=== PATIENT | female | born 1960 | race Two or more races ===

== ENCOUNTER 2016-09-21 11:49 | Emergency (ER) | payer OTHER ==
[2016-09-21 13:19] VITALS: BP 118/70
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
== END 2016-09-21 15:20 | disposition home or self-care (01) ==
LOC: UCEAST 11:49 → MERGE 11:49 → UCEAST 15:20
DX: B34.9 Viral infection, unspecified (principal); H81.10 Benign paroxysmal vertigo, unspecified ear
CPT/HCPCS: 99202; G0463

== ENCOUNTER 2017-09-04 09:24 | Emergency (ER) | payer OTHER ==
--- OUTSIDE RECORDS SUMMARY | 2017-09-04 09:40 | XMS REPORT ---
:1960 External Reference #:[id number] Author Organization [facility] Address [address] [address] Phone [phone] Care Team Providers Name Role Phone Marta Ibarra MD Primary Care Physician Unavailable Payers Type Date Identification Numbers Payment Provider Subscriber Commercial Effective: Policy Number: [id number] Jose M-[facility] Jose C Beth 2011 Group Number: [id number] [id number] PayID: [id number] [place] [address] Commercial Expires: 2011 Policy Number: [employer] Rafaela Campos [id number] Group Number: [id number] [id number] PayID: [id number] [place] [address] Problems Date Description Provider Status Onset: 12/25/2010 Paroxysmal supraventricular Marta Ibarra M.D. Active tachycardia Family History Date Family Member(s) Problem(s) Comments : (age 86 Years) Father due to Heart Disease : (age 86 Years) Mother due to Stroke Children children.2 Children son.1 Children daughter.1 Siblings Siblings: 6 , 2 brothers and 4 sisters, all with high blood pressure. First Brother Diabetes Type II First Brother Hypertension Second Brother Hypertension First Sister Hypertension Second Sister Hypertension Third Sister Hypertension Third Sister Diabetes Fourth Sister Hypertension Social History Type Date Description Comments Marital Status Occupation Homemaker works one day a week at [employer] Cigarette Use Never Smoked Cigarettes ETOH Use Denies alcohol use Smoking Patient has never smoked Recreational Drug Use Denies Drug Use Daily Caffeine Drinks an occasional cup of tea. General Hx Text [place] Allergies, Adverse Reactions, Alerts Date Description Reaction Status Severity Comments 11/02/2003 NKDA active Medications Medication Date Status Form Strength Qnty SIG Indications Ordering Provider Night Splint 04/05 Active 1unit For use at M72.2 [facility] For s night Code: Cotton, Fasciitis m72.2 M.D. Wrist Brace 07/02 Active Misc 1unit for daily 727.05 [facility] s Abhinav Ibarra Calcium 600+D 03/30 Active Tablets 600-400mg 60tab 2 po daily -Unit s Abhinav Ibarra Multi For Her Active Capsules 1 by mouth Other 50+ /0000 every day Ordering Provider Lutein 20 Active Capsules once a day Unknown / Hydrocortisone 11/08 Hx Cream 2.5% 30uni apply to R21 ts affected Cotton, - area twice M.D. 08/05 Doxycycline 03/16 Hx Tablets 100mg 20tab 1 tab by J06.9 [facility] Hyclate /2015 s mouth twice Cotton, - a day for M.D. 07/26 10 Potassium 02/04 Hx Liquid 20Meq/15M 10 meq by Luther Chloride /2013 L (10%) mouth twice Luis Cooper, - daily M.D. 02/04 Potassium 02/04 Hx Tablets ER 10Meq 60tab 2 tabs by Luther Chloride ER /2013 s mouth daily Luis Cooper - M.D. 06/11 Potassium 02/03 Hx 10Meq 60uni 2 tabs po Luther Chloride ts qd Luis Cooper - M.D. 02/04 Erythromycin 11/15 Hx Ointment 5mg/GM 3.500 Apply to 782.1 gm affected Cotton, - skin bid M.D. 10/02 Ginseng Hx Capsules 250mg 2 po daily Luis Cooper - M.D. 07/02 Amoxicillin 03/30 Hx Capsules 500mg 30cap 1 tab po 461.9 s tid for 10 Cotton, - days M.D. Patanol 01/18 Hx Solution 0.1% 5ml one drop in 477.9 each eye Cotton, - twice daily M.D. 03/30 as needed Fluticasone 01/18 Hx Suspension 50mcg/Act 16gm 2 477.9 Marta intranasal Cotton, - puffs once M.D. Clarinex 01/18 Hx Tablets 5mg 30tab 1 po qd 477.9 Marta s Jm Ibarra M.D. 03/30 Metoprolol 01/05 Hx Tablets 25mg 20tab 1 po prn Luther Tartrate s SVT Jm Burrell.DVenus 10/02 Lopressor 09/22 Hx Tablets 25mgM 5tabs 1 po bid prn Jm Burrell M.DVenus 09/22 Lopressor 09/22 Hx Tablets 25mg 5tabs 1 by mouth twice daily Luis Cooper, - as needed M.D. 12/26 Aygestin 07/03 Hx Tablets 5mg 50tab as directed Jm Phipps M.D. 12/26 Vitamins 11/02 Hx Caplets 30cap 1 PO qd Jm Miller M.D. 04/26 Tenormin 11/01 Hx Tablets 90tab 1 po qd Jm Miller M.D. 11/02 Co-Enzyme Q 10 Hx Capsules 200mg mg 1 po ad Unknown /0000 Co Q10 Maximum 00 Hx Capsules 200mg every day Unknown Strength /0000 by mouth - 11/09 Collagen 00/ Hx Cream Unknown /0000 - 06/09 Immunizations CPT Code Status Date Vaccine Lot # [id number] Given 12/26/2010 Tdap - Tetanus/Diptheria/Acellular Pertussis [id number] Vital Signs Date Vital Result Comment 08/06/2017 Height 62 inches 5'2" Weight 111.00 lb Heart Rate 61 /min BP Systolic Sitting 100 mmHg BP Diastolic Sitting 56 mmHg Body Temperature 98.1 F O2 % BldC Oximetry 98 % BMI (Body Mass Index) 20.3 kg/m2 06/26/2017 Height 62 inches 5'2" Weight 112.00 lb with shoes Heart Rate 60 /min BP Systolic Sitting 118 mmHg LA reg cuff BP Diastolic Sitting 72 mmHg LA reg cuff BMI (Body Mass Index) 20.5 kg/m2 Ejection Fraction 50%-55% stress test 09/22/10 04/05/2017 Weight 112.00 lb Heart Rate 74 /min BP Systolic 104 mmHg BP Diastolic 60 mmHg Body Temperature 98.0 F O2 % BldC Oximetry 98 % 11/08/2016 Height 61.25 inches 5'1.25" Weight 111.00 lb Heart Rate 56 /min BP Systolic 122 mmHg BP Diastolic 68 mmHg Body Temperature 97.0 F O2 % BldC Oximetry 97 % BMI (Body Mass Index) 20.8 kg/m2 09/28/2016 Weight 112.00 lb with shoes Heart Rate 62 /min BP Systolic Sitting 96 mmHg BP Diastolic Sitting 60 mmHg Body Temperature 98.3 F O2 % BldC Oximetry 98 % 07/26/2016 Height 61.5 inches 5'1.50" Weight 108.00 lb Heart Rate 66 /min BP Systolic 110 mmHg BP Diastolic 70 mmHg Body Temperature 97.2 F O2 % BldC Oximetry 98 % BMI (Body Mass Index) 20.1 kg/m2 03/16/2016 Weight 109.75 lb Heart Rate 76 /min BP Systolic Sitting 115 mmHg BP Diastolic Sitting 79 mmHg Body Temperature 98.1 F O2 % BldC Oximetry 98 % 10/04/2015 Height 62 inches 5'2" Weight 106.25 lb Heart Rate 100 /min BP Systolic Sitting 130 mmHg LA, regular cuff BP Diastolic Sitting 86 mmHg LA, regular cuff BMI (Body Mass Index) 19.4 kg/m2 Ejection Fraction 60% echo 07/27/10 07/05/2015 Height 61.75 inches 5'1.75" Weight 104.75 lb Heart Rate 65 /min BP Systolic Sitting 90 mmHg BP Diastolic Sitting 57 mmHg Body Temperature 97.5 F O2 % BldC Oximetry 99 % BMI (Body Mass Index) 19.3 kg/m2 11/09/2014 Height 62 inches 5'2" Weight 101.00 lb Heart Rate 63 /min BP Systolic 94 mmHg BP Diastolic 54 mmHg Body Temperature 98.6 F BMI (Body Mass Index) 18.5 kg/m2 07/16/2014 Weight 106.50 lb Heart Rate 69 /min BP Systolic Sitting 108 mmHg BP Diastolic Sitting 70 mmHg Body Temperature 97.1 F O2 % BldC Oximetry 98 % 07/02/2014 Weight 106.50 lb Heart Rate 64 /min BP Systolic Sitting 106 mmHg BP Diastolic Sitting 62 mmHg Body Temperature 96.4 F 06/11/2014 Height 61.5 inches 5'1.50" Weight 104.00 lb Heart Rate 68 /min BP Systolic Sitting 100 mmHg BP Diastolic Sitting 66 mmHg BMI (Body Mass Index) 19.3 kg/m2 12/18/2013 Height 61.5 inches 5'1.50" Weight 112.00 lb Heart Rate 64 /min BP Systolic Sitting 104 mmHg BP Diastolic Sitting 62 mmHg BMI (Body Mass Index) 20.8 kg/m2 10/09/2012 Height 61.5 inches 5'1.50" Weight 105.00 lb Heart Rate 66 /min BP Systolic Sitting 94 mmHg BP Diastolic Sitting 62 mmHg BMI (Body Mass Index) 19.5 kg/m2 10/02/2012 Height 61.5 inches 5'1.50" Weight 104.00 lb Heart Rate 67 /min BP Systolic 100 mmHg BP Diastolic 70 mmHg Respiratory Rate 14 /min BMI (Body Mass Index) 19.3 kg/m2 11/16/2011 Height 61.5 inches 5'1.50" Weight 107.00 lb Heart Rate 66 /min BP Systolic Sitting 102 mmHg BP Diastolic Sitting 60 mmHg BMI (Body Mass Index) 19.9 kg/m2 11/07/2011 Height 61.5 inches 5'1.50" Weight 107.00 lb Heart Rate 60 /min BP Systolic 114 mmHg BP Diastolic 62 mmHg BMI (Body Mass Index) 19.9 kg/m2 03/30/2011 Height 61.5 inches 5'1.50" Weight 114.00 lb Heart Rate 64 /min BP Systolic Sitting 96 mmHg BP Diastolic Sitting 64 mmHg Body Temperature 98.1 F BMI (Body Mass Index) 21.2 kg/m2 01/18/2011 Height 61.5 inches 5'1.50" Weight 121.00 lb Heart Rate 70 /min BP Systolic Sitting 102 mmHg BP Diastolic Sitting 70 mmHg Body Temperature 97.9 F BMI (Body Mass Index) 22.5 kg/m2 01/05/2011 Height 61.5 inches 5'1.50" Weight 118.00 lb Heart Rate 59 /min BP Systolic Sitting 130 mmHg L BP Diastolic Sitting 80 mmHg L BMI (Body Mass Index) 21.9 kg/m2 12/26/2010 Height 61.5 inches 5'1.50" Weight 121.00 lb Heart Rate 78 /min BP Systolic 100 mmHg BP Diastolic 70 mmHg BMI (Body Mass Index) 22.5 kg/m2 07/13/2010 Weight 114.75 lb Heart Rate 76 /min BP Systolic 102 mmHg BP Diastolic 60 mmHg 07/03/2010 Weight 117.00 lb Heart Rate 62 /min BP Systolic 100 mmHg BP Diastolic 60 mmHg 04/26/2010 Weight 113.00 lb Heart Rate 60 /min BP Systolic Sitting 96 mmHg rt BP Diastolic Sitting 60 mmHg rt BP Systolic Standing 114 mmHg BP Diastolic Standing 64 mmHg 11/02/2003 Height 62 inches Weight 117.00 lb Heart Rate 56 /min BP Systolic Sitting 100 mmHg BP Diastolic Sitting 60 mmHg BP Systolic Standing 102 mmHg BP Diastolic Standing 64 mmHg BMI (Body Mass Index) 21.4 kg/m2 Results Test Date Test Result H/L Range Note CBC Auto Diff 07/18/2017 White Blood Count 4.6 10^3/uL 3.5-10.8 Red Blood Count 4.23 10^6/uL 4.0-5.4 Hemoglobin 12.7 g/dL 12.0-16.0 Hematocrit 38 % 35-47 Mean Corpuscular Volume 90 fL 80-97 Mean Corpuscular Hemoglobin 30 pg 27-31 Mean Corpuscular HGB Conc 33 g/dL 31-36 Red Cell Distribution Width 13 % 10.5-15 Platelet Count 290 10^3/uL 150-450 Mean Platelet Volume 9 um3 7.4-10.4 Abs Neutrophils 2.8 10^3/uL 1.5-7.7 Abs Lymphocytes 1.2 10^3/uL 1.0-4.8 Abs Monocytes 0.4 10^3/uL 0-0.8 Abs Eosinophils 0.1 10^3/uL 0-0.6 Abs Basophils 0 10^3/uL 0-0.2 Abs Nucleated RBC 0 10^3/uL Granulocyte % 61.5 % 38-83 Lymphocyte % 25.5 % 25-47 Monocyte % 9.6 % High 1-9 Eosinophil % 2.6 % 0-6 Basophil % 0.8 % 0-2 Nucleated Red Blood Cells % 0 Laboratory test finding 07/18/2017 TSH (Thyroid Stim Horm) 4.43 mcIU/mL 0.34-5.60 1 Comp Metabolic Panel 07/18/2017 Sodium 138 mmol/L 133-145 Potassium 4.1 mmol/L 3.5-5.0 Chloride 103 mmol/L 101-111 Co2 Carbon Dioxide 31 mmol/L 22-32 Anion Gap 4 mmol/L 2-11 Glucose 93 mg/dL 70-100 Blood Urea Nitrogen 16 mg/dL 6-24 Creatinine 0.61 mg/dL 0.51-0.95 BUN/Creatinine Ratio 26.2 High 8-20 Calcium 9.5 mg/dL 8.6-10.3 Total Protein 7.2 g/dL 6.4-8.9 Albumin 4.1 g/dL 3.2-5.2 Globulin 3.1 g/dL 2-4 Albumin/Globulin Ratio 1.3 1-3 Total Bilirubin 0.90 mg/dL 0.2-1.0 Alkaline Phosphatase 62 U/L 34-104 Alt 13 U/L 7-52 Ast 18 U/L 13-39 Egfr Non- 101.5 >60 Egfr 130.5 >60 2 Laboratory test finding 07/18/2017 Magnesium 2.2 mg/dL 1.9-2.7 3 Lipid Profile (Trig/Chol/HDL) 07/18/2017 Triglycerides 115 mg/dL 4 Cholesterol 241 mg/dL 5 HDL Cholesterol 65.1 mg/dL 6 LDL Cholesterol 153 mg/dL 7 CBC Auto Diff 07/25/2016 White Blood Count 5.3 10^3/uL 3.5-10.8 8 Red Blood Count 4.25 10^6/uL 4.0-5.4 8 Hemoglobin 12.5 g/dL 12.0-16.0 8 Hematocrit 38 % 35-47 8 Mean Corpuscular Volume 90 fL 80-97 8 Mean Corpuscular Hemoglobin 29 pg 27-31 8 Mean Corpuscular HGB Conc 33 g/dL 31-36 8 Red Cell Distribution Width 13 % 10.5-15 8 Platelet Count 284 10^3/uL 150-450 8 Mean Platelet Volume 9 um3 7.4-10.4 8 Abs Neutrophils 3.6 10^3/uL 1.5-7.7 8 Abs Lymphocytes 1.2 10^3/uL 1.0-4.8 8 Abs Monocytes 0.3 10^3/uL 0-0.8 8 Abs Eosinophils 0.1 10^3/uL 0-0.6 8 Abs Basophils 0 10^3/uL 0-0.2 8 Abs Nucleated RBC 0 10^3/uL 8 Granulocyte % 68.0 % 38-83 8 Lymphocyte % 22.5 % Low 25-47 8 Monocyte % 5.8 % 1-9 8 Eosinophil % 2.8 % 0-6 8 Basophil % 0.9 % 0-2 8 Nucleated Red Blood Cells % 0 8 Laboratory test finding 07/25/2016 Magnesium 2.0 mg/dL 1.9-2.7 8, 9 Comp Metabolic Panel 07/25/2016 Sodium 139 mmol/L 133-145 8 Potassium 4.1 mmol/L 3.5-5.0 8 Chloride 104 mmol/L 101-111 8 Co2 Carbon Dioxide 29 mmol/L 22-32 8 Anion Gap 6 mmol/L 2-11 8 Glucose 89 mg/dL 70-100 8 Blood Urea Nitrogen 12 mg/dL 6-24 8 Creatinine 0.57 mg/dL 0.51-0.95 8 BUN/Creatinine Ratio 21.1 High 8-20 8 Calcium 9.3 mg/dL 8.6-10.3 8 Total Protein 6.9 g/dL 6.4-8.9 8 Albumin 4.0 g/dL 3.2-5.2 8 Globulin 2.9 g/dL 2-4 8 Albumin/Globulin Ratio 1.4 1-3 8 Total Bilirubin 0.70 mg/dL 0.2-1.0 8 Alkaline Phosphatase 57 U/L 34-104 8 Alt 18 U/L 7-52 8 Ast 23 U/L 13-39 8 Egfr Non- 110.1 >60 8 Egfr 141.6 >60 8, 10 Lipid Profile (Trig/Chol/HDL) 07/25/2016 Triglycerides 134 mg/dL 8, 11 Cholesterol 221 mg/dL 8, 12 HDL Cholesterol 59.7 mg/dL 8, 13 LDL Cholesterol 135 mg/dL 8, 14 Comp Metabolic Panel 10/04/2015 Sodium 135 mmol/L 133-145 Potassium 4.4 mmol/L 3.5-5.0 Chloride 99 mmol/L Low 101-111 Co2 Carbon Dioxide 28 mmol/L 22-32 Anion Gap 8 mmol/L 2-11 Glucose 119 mg/dL High 70-100 Blood Urea Nitrogen 13 mg/dL 6-24 Creatinine 0.66 mg/dL 0.51-0.95 BUN/Creatinine Ratio 19.7 8-20 Calcium 9.6 mg/dL 8.6-10.3 Total Protein 7.8 g/dL 6.4-8.9 Albumin 4.7 g/dL 3.2-5.2 Globulin 3.1 g/dL 2-4 Albumin/Globulin Ratio 1.5 1-3 Total Bilirubin 1.00 mg/dL 0.2-1.0 Alkaline Phosphatase 75 U/L 34-104 Alt 15 U/L 7-52 Ast 24 U/L 13-39 Egfr Non- 93.0 >60 Egfr 119.6 >60 15 Laboratory test finding 10/04/2015 Magnesium 2.2 mg/dL 1.9-2.7 CBC Auto Diff 10/04/2015 White Blood Count 4.3 10^3/uL 3.5-10.8 Red Blood Count 4.62 10^6/uL 4.0-5.4 Hemoglobin 14.0 g/dL 12.0-16.0 Hematocrit 43 % 35-47 Mean Corpuscular Volume 93 fL 80-97 Mean Corpuscular Hemoglobin 30 pg 27-31 Mean Corpuscular HGB Conc 33 g/dL 31-36 Red Cell Distribution Width 13 % 10.5-15 Platelet Count 341 10^3/uL 150-450 Mean Platelet Volume 8 um3 7.4-10.4 Abs Neutrophils 3.1 10^3/uL 1.5-7.7 Abs Lymphocytes 0.8 10^3/uL Low 1.0-4.8 Abs Monocytes 0.4 10^3/uL 0-0.8 Abs Eosinophils 0 10^3/uL 0-0.6 Abs Basophils 0 10^3/uL 0-0.2 Abs Nucleated RBC 0 10^3/uL Granulocyte % 71.8 % 38-83 Lymphocyte % 17.8 % Low 25-47 Monocyte % 8.8 % 1-9 Eosinophil % 1.0 % 0-6 Basophil % 0.6 % 0-2 Nucleated Red Blood Cells % 0.1 CBC No Diff 06/21/2015 White Blood Count 3.7 10^3/uL Low 4.8-10.8 Red Blood Count 4.53 10^6/uL 4.0-5.4 Hemoglobin 13.5 g/dL 12.0-16.0 Hematocrit 42 % 35-47 Mean Corpuscular Volume 94 fL 80-97 Mean Corpuscular Hemoglobin 30 pg 27-31 Mean Corpuscular HGB Conc 32 g/dL 31-36 Red Cell Distribution Width 13 % 10.5-15 Platelet Count 302 10^3/uL 150-450 Mean Platelet Volume 9 um3 7.4-10.4 Basic Metabolic Panel 06/21/2015 Sodium 138 mmol/L 133-145 Potassium 4.1 mmol/L 3.5-5.0 Chloride 101 mmol/L 101-111 Co2 Carbon Dioxide 31 mmol/L 22-32 Anion Gap 6 mmol/L 2-11 Glucose 91 mg/dL 70-100 Blood Urea Nitrogen 14 mg/dL 6-24 Creatinine 0.63 mg/dL 0.51-0.95 BUN/Creatinine Ratio 22.2 High 8-20 Calcium 9.6 mg/dL 8.6-10.3 Egfr Non- 98.5 >60 Egfr 126.6 >60 16 Lipid Profile (Trig/Chol/HDL) 06/21/2015 Triglycerides 82 mg/dL 17 Cholesterol 238 mg/dL 18 HDL Cholesterol 76.9 mg/dL 19 LDL Cholesterol 145 mg/dL 20 Laboratory test finding 07/02/2014 Hepatitis C Antibody Nonreactive Nonreactive Hepatitis B Ally AB 07/02/2014 Hepatitis B Surface AB Reactive Nonreactive Titer Hep B Surf AB Level 596.60 mIU/mL <12 21 Laboratory test 07/02/2014 Hepatitis B Surface Nonreactive Nonreactive finding Antigen HPV High Risk 07/02/2014 Human Papillomavirus See Comment 22 Source HPV High Risk Type 16, PCR Negative Negative HPV High Risk Type 18, PCR Negative Negative HPV Other Risk types Negative Negative 23 Laboratory test finding 07/02/2014 Cytology RUN DATE: 07/02/ <SEE 24 NOTE> Basic Metabolic Panel 06/10/2014 Sodium 139 mmol/L 133-145 Potassium 4.0 mmol/L 3.7-5.6 Chloride 103 mmol/L 101-111 Co2 Carbon Dioxide 32 mmol/L 22-32 Anion Gap 4 mmol/L 2-11 Glucose 90 mg/dL 70-100 Blood Urea Nitrogen 19 mg/dL 6-24 Creatinine 0.58 mg/dL 0.51-0.95 BUN/Creatinine Ratio 32.8 High 8-20 Calcium 9.7 mg/dL 8.6-10.3 Egfr Non- 108.7 >60 Egfr 139.9 >60 25 CBC Auto Diff 01/16/2014 White Blood Count 4.4 10^3/uL Low 4.8-10.8 26 Red Blood Count 3.98 10^6/uL Low 4.0-5.4 26 Hemoglobin 12.4 g/dL 12.0-16.0 26 Hematocrit 36 % 35-47 26 Mean Corpuscular Volume 91 fL 80-97 26 Mean Corpuscular Hemoglobin 31 pg 27-31 26 Mean Corpuscular HGB Conc 34 g/dL 31-36 26 Red Cell Distribution Width 13 % 10.5-15 26 Platelet Count 268 10^3/uL 150-450 26 Mean Platelet Volume 8 um3 7.4-10.4 26 Abs Neutrophils 2.9 10^3/uL 1.5-7.7 26 Abs Lymphocytes 1.0 10^3/uL 1.0-4.8 26 Abs Monocytes 0.4 10^3/uL 0-0.8 26 Abs Eosinophils 0.1 10^3/uL 0-0.6 26 Abs Basophils 0 10^3/uL 0-0.2 26 Abs Nucleated RBC 0 10^3/uL 26 Granulocyte % 64.9 % 38-83 26 Lymphocyte % 22.8 % Low 25-47 26 Monocyte % 8.2 % 1-9 26 Eosinophil % 3.2 % 0-6 26 Basophil % 0.9 % 0-2 26 Nucleated Red Blood Cells % 0 26 Comp Metabolic Panel 01/16/2014 Sodium 139 mmol/L 133-145 26 Potassium 4.4 mmol/L 3.7-5.6 26 Chloride 106 mmol/L 101-111 26 Co2 Carbon Dioxide 29 mmol/L 22-32 26 Anion Gap 4 mmol/L 2-11 26 Glucose 92 mg/dL 70-100 26 Blood Urea Nitrogen 15 mg/dL 6-24 26 Creatinine 0.66 mg/dL 0.51-0.95 26 BUN/Creatinine Ratio 22.7 High 8-20 26 Calcium 9.0 mg/dL 8.6-10.3 26 Total Protein 6.9 g/dL 6.4-8.9 26 Albumin 4.0 g/dL 3.2-5.2 26 Globulin 2.9 g/dL 2-4 26 Albumin/Globulin Ratio 1.4 1-3 26 Total Bilirubin 0.40 mg/dL 0.2-1.0 26 Alkaline Phosphatase 66 U/L 34-104 26 Alt 17 U/L 7-52 26 Ast 21 U/L 13-39 26 Egfr Non- 93.7 >60 26 Egfr 120.5 >60 26, 27 Lipid Panel - [facility] 01/16/2014 Creatine Kinase 87 U/L 10-223 26, 28 Lipid Profile (Trig/Chol/HDL) 01/16/2014 Triglycerides 175 mg/dL 26, 29 Cholesterol 195 mg/dL 26, 30 HDL Cholesterol 55.6 mg/dL 26, 31 LDL Cholesterol 104 mg/dL 26, 32 Basic Metabolic Panel 02/05/2013 Sodium 138 mmol/L 133-145 Potassium 4.1 mmol/L 3.5-5.0 Chloride 103 mmol/L 101-111 Co2 Carbon Dioxide 28.0 mmol/L 22-32 Anion Gap 7.0 mmol/L 2-11 Glucose 105 mg/dL High 70-100 Blood Urea Nitrogen 20 mg/dL 6-24 Creatinine 0.60 mg/dL 0.50-1.40 BUN/Creatinine Ratio 33.3 High 8-20 Calcium 9.5 mg/dL 8.1-9.9 Egfr Non- 105.0 >60 Egfr 135.0 >60 33 CKMB 10/02/2012 CKMB ng/mL 2.5 ng/mL 0.3-4.0 34 Basic Metabolic Panel 10/02/2012 Sodium 138 mmol/L 133-145 Potassium 3.9 mmol/L 3.5-5.0 Chloride 106 mmol/L 101-111 Co2 Carbon Dioxide 29.0 mmol/L 22-32 Anion Gap 3.0 mmol/L 2-11 Glucose 96 mg/dL 70-100 Blood Urea Nitrogen 18 mg/dL 6-24 Creatinine 0.60 mg/dL 0.50-1.40 BUN/Creatinine Ratio 30.0 High 8-20 Calcium 9.4 mg/dL 8.1-9.9 Egfr Non- 105.0 >60 Egfr 135.0 >60 35 Laboratory test finding 10/02/2012 Troponin I 0 ng/mL 0-0.06 36 Laboratory test finding 10/02/2012 Creatine Kinase 151 U/L 0-200 Lipid Profile (Trig/Chol/HDL) 08/25/2012 Triglycerides 56 mg/dL 40-200 Cholesterol 239 mg/dL High Less than 200 HDL Cholesterol 89 mg/dL High 40-60 37 Cholesterol/HDL Ratio 2.7 Average 1-4.44 LDL Cholesterol 138.8 mg/dL High Less Than 100 38 Basic Metabolic Panel 08/25/2012 Sodium 138 mmol/L 133-145 Potassium 4.3 mmol/L 3.5-5.0 Chloride 101 mmol/L 101-111 Co2 Carbon Dioxide 31.0 mmol/L 22-32 Anion Gap 6.0 mmol/L 2-11 Glucose 89 mg/dL 70-100 Blood Urea Nitrogen 13 mg/dL 6-24 Creatinine 0.70 mg/dL 0.50-1.40 BUN/Creatinine Ratio 18.6 8-20 Calcium 9.8 mg/dL 8.1-9.9 Egfr Non- 88.2 >60 Egfr 113.5 >60 39 Laboratory test finding 12/27/2010 Ferritin < 10 NG/ML Low 11.0-307 Iron & Iron Binding Capacity 12/27/2010 Iron Total 62 g/dL 28-170 Unsaturated Iron Binding 376 g/dL Total Iron Binding Capacity 438 g/dL 250-450 % Iron Saturation 14 % Low 15-55 Lipid Profile (Trig/Chol/HDL) 12/27/2010 Triglyceride 117 mg/dL 40-200 Cholesterol 235 mg/dL High Less Than 200 40 High Density Lipoprotein 63 mg/dL High 40-60 41 Cholesterol/HDL Ratio 3.73 AVERAGE 1-4.44 Low Density Lipoprotein 149 mg/dL High Less Than 100 42 Comp Metabolic Panel 12/27/2010 Sodium 139 mmol/L 135-145 Potassium 4.5 mmol/L 3.5-5.0 Chloride 106 mmol/L 101-111 Co2 (Carbon Dioxide) 29.0 mmol/L 22-32 Anion Gap 4.0 mmol/L 2-11 43 Glucose 95 mg/dL 70-100 BUN 16 mg/dL 6-24 Creatinine 0.50 mg/dL 0.50-1.40 One Over Creatinine 2.00 BUN/Creatinine Ratio 32.0 High 8-20 Calcium 8.9 mg/dL 8.1-9.9 Total Protein 7.1 GM/DL 6.2-8.1 Albumin 3.7 GM/DL 3.6-5.4 Globulin 3.4 GM/DL 2-4 Albumin/Globulin Ratio 1.1 1-3 Bilirubin Total 0.8 mg/dL 0.4-1.5 44 Alkaline Phosphatase 52 U/L 30-110 Alt (SGPT) 18 U/L 14-54 Ast (Sgot) 22 U/L 12-42 eGFR Non- 130.6 > 60 eGFR 168.0 > 60 45 CBC Auto Diff 12/27/2010 White Blood Count 4.3 CUMM Low 4.8-10.8 Red Cell Count 3.91 CUMM Low 4.2-5.4 Hemoglobin 12.1 g/dL 12.0-16.0 Hematocrit 36 % 35-47 Mean Corpuscular Volume 91 um3 79-97 Mean Corpuscular Hemoglob 31 pg 27-31 Mean Corpuscular HGB Cone 34 g/dL 32-36 Redcell Distribution WDTH 12 % 10.5-15 Platelet Count 317 CUMM 150-450 Mean Platelet Volume 8.5 um3 7.4-10.4 Gran % 66.7 % 38-83 Lymph % 22.1 % Low 25-47 Mononuclear % 8.4 % 1-9 Eosinophil % 2.3 % 0-6 Basophil % 0.5 % 0-2 Abs Lymphs 1.0 1.0-4.8 Abs Mononuclear 0.4 0-0.8 Absolute Neutrophil Count 2.9 1.5-7.7 Abs Eosinophils 0.1 0-0.6 Abs Basophils 0 0-0.2 Cytology 12/26/2010 Cytology <SEE 46 NOTE> CBC With Electronic 09/22/2010 White Blood Count 4.9 CUMM 4.8-10.8 Diff Red Cell Count 4.11 CUMM Low 4.2-5.4 Hemoglobin 12.8 g/dL 12.0-16.0 Hematocrit 37 % 35-47 Mean Corpuscular Volume 89 um3 79-97 Mean Corpuscular Hemoglob 31 pg 27-31 Mean Corpuscular HGB Cone 35 g/dL 32-36 Redcell Distribution WDTH 13 % 10.5-15 Platelet Count 328 CUMM 150-450 Mean Platelet Volume 7.6 um3 7.4-10.4 Gran % 69.9 % 38-83 Lymph % 20.2 % Low 25-47 Mononuclear % 8.2 % 1-9 Eosinophil % 1.2 % 0-6 Basophil % 0.5 % 0-2 Abs Lymphs 1.0 1.0-4.8 Abs Mononuclear 0.4 0-0.8 Absolute Neutrophil Count 3.5 1.5-7.7 Abs Eosinophils 0.1 0-0.6 Abs Basophils 0 0-0.2 Laboratory test finding 09/22/2010 Magnesium 2.1 mg/dL 1.7-2.6 TSH 2.65 MIU/ML 0.34-5.60 Basic Metabolic Panel 09/22/2010 Sodium 136 mmol/L 135-145 Potassium 4.1 mmol/L 3.5-5.0 Chloride 102 mmol/L 101-111 Co2 (Carbon Dioxide) 27.0 mmol/L 22-32 Anion Gap 7.0 mmol/L 2-11 47 Glucose 85 mg/dL 70-100 BUN 16 mg/dL 6-24 Creatinine 0.50 mg/dL 0.50-1.40 One Over Creatinine 2.00 BUN/Creatinine Ratio 32.0 High 8-20 Calcium 8.9 mg/dL 8.1-9.9 eGFR Non- 138.8 > 60 eGFR 168.0 > 60 48 Laboratory test finding 06/29/2010 Magnesium 2.2 mg/dL 1.7-2.6 Basic Metabolic Panel 06/29/2010 Sodium 132 mmol/L Low 135-145 Potassium 4.1 mmol/L 3.5-5.0 Chloride 99 mmol/L Low 101-111 Co2 (Carbon Dioxide) 29.0 mmol/L 22-32 Anion Gap 4.0 mmol/L 2-11 49 Glucose 95 mg/dL 70-100 50 BUN 13 mg/dL 6-24 Creatinine 0.50 mg/dL 0.50-1.40 One Over Creatinine 2.00 BUN/Creatinine Ratio 26.0 High 8-20 Calcium 9.3 mg/dL 8.1-9.9 eGFR Non- 139.4 > 60 eGFR 168.6 > 60 51 1 Copy Result to: MARTA IBARRA ([id number]) 2 Because ethnic data is not always readily available, this report includes an eGFR for both -Americans and non- Americans. The National Kidney Disease Education Program (NKDEP) does not endorse the use of the MDRD equation for patients that are not between the ages of 18 and 70, are , have extremes of body size, muscle mass, or nutritional status, or are non- or non-. According to the National Kidney Foundation, irrespective of diagnosis, the stage of the disease is based on the level of kidney function: Stage Description GFR(mL/min/1.73 m(2)) 1 Kidney damage with normal or decreased GFR 90 2 Kidney damage with mild decrease in GFR 60-89 3 Moderate decrease in GFR 30-59 4 Severe decrease in GFR 15-29 5 Kidney failure <15 (or dialysis) 3 Copy Result to: MARTA IBARRA ([id number]) 4 Desirable: <150 Borderline High: 150-199 High: 200-499 Very High: >500 5 Desirable: <200 Borderline High: 200-239 High: >239 6 Low: <40 Desirable: 40-60 High: >60 7 Desirable: <100 Near Optimal: 100-129 Borderline High: 130-159 High: 160-189 Very High: >189 8 PT IS FASTING 9 PT IS FASTING 10 Because ethnic data is not always readily available, this report includes an eGFR for both -Americans and non- Americans. The National Kid[employer] Education Program (NKDEP) does not endorse the use of the MDRD equation for patients that are not between the ages of 18 and 70, are , have extremes of body size, muscle mass, or nutritional status, or are non- or non-. According to the [employer], irrespective of diagnosis, the stage of the disease is based on the level of kidney function: Stage Description GFR(mL/min/1.73 m(2)) 1 Kidney damage with normal or decreased GFR 90 2 Kidney damage with mild decrease in GFR 60-89 3 Moderate decrease in GFR 30-59 4 Severe decrease in GFR 15-29 5 Kidney failure <15 (or dialysis) 11 Desirable <150 Borderline high 150-199 High 200-499 Very High >500 12 Desirable <200 Borderline high 200-239 High >239 13 Low <40 Desirable: 40-60 High: >60 14 Desirable: <100 mg/dL Near Optimal: 100-129 mg/dL Borderline High: 130-159 mg/dL High: 160-189 mg/dL Very High: >189 mg/dL 15 Because ethnic data is not always readily available, this report includes an eGFR for both -Americans and non- Americans. The National Kidney Disease Education Program (NKDEP) does not endorse the use of the MDRD equation for patients that are not between the ages of 18 and 70, are , have extremes of body size, muscle mass, or nutritional status, or are non- or non-. According to the National Kidney Foundation, irrespective of diagnosis, the stage of the disease is based on the level of kidney function: Stage Description GFR(mL/min/1.73 m(2)) 1 Kidney damage with normal or decreased GFR 90 2 Kidney damage with mild decrease in GFR 60-89 3 Moderate decrease in GFR 30-59 4 Severe decrease in GFR 15-29 5 Kidney failure <15 (or dialysis) 16 Because ethnic data is not always readily available, this report includes an eGFR for both -Americans and non- Americans. The National Kidney Disease Education Program (NKDEP) does not endorse the use of the MDRD equation for patients that are not between the ages of 18 and 70, are , have extremes of body size, muscle mass, or nutritional status, or are non- or non-. According to the National Kidney Foundation, irrespective of diagnosis, the stage of the disease is based on the level of kidney function: Stage Description GFR(mL/min/1.73 m(2)) 1 Kidney damage with normal or decreased GFR 90 2 Kidney damage with mild decrease in GFR 60-89 3 Moderate decrease in GFR 30-59 4 Severe decrease in GFR 15-29 5 Kidney failure <15 (or dialysis) 17 Desirable <150 Borderline high 150-199 High 200-499 Very High >500 18 Desirable <200 Borderline high 200-239 High >239 19 Low <40 Desirable: 40-60 High: >60 20 Desirable: <100 mg/dL Near Optimal: 100-129 mg/dL Borderline High: 130-159 mg/dL High: 160-189 mg/dL Very High: >189 mg/dL 21 This assay does not differentiate between reactivity due to a vaccine-induced immune response or an immune response induced by infection with HBV. 22 RESULT: Ectocervical/Endocervical 23 The following Other High Risk HPV types were not detected: 31, 33, 35, 39, 45, 51, 52, 56, 58, 59, 66, and 68 Test Performed by: [address] [address] [employer]: Willy Bales M.D. 24 RUN DATE: 07/02/14 [facility] LAB LIVE PAGE 1 RUN TIME: [address] [place] [id number] Specimen Inquiry Name: RAFAELA CAMPOS : [address]: Marta Ibarra MD Acct: [id number] Unit: [id number] AGE: 53 Location: [facility] Re07/02/14 SEX: F Status: REG REF SPEC: [id number] REEMA: 07/02/[address]: Marta Ibarra MD REQ: [id number] RECD: 07/02/14 STATUS: SOUT _ ORDERED: IMAGE ANALYSIS, HPV/Thin Prep FINAL DIAGNOSIS Negative for Intraepithelial lesion or Malignancy COMMENTS: Specimen sent to [facility] in [place], [place] on 07/02/14 by [id number] at 1459. Results will be reported separately. A. Ectocervical/Endocervical Specimen Adequacy: Satisfactory of evaluation Transformation zone component cannot be definitely identified due to presence of atrophy or other hormonal changes Patient Information: HPV: High risk HPV DNA testing regardless of pap results. Actual Specimen Date: 07/02/14 LMP If Unknown: unknown ?: N Post Menopausal?: Y Hysterectomy?: N Previous Abnormal Pap Smears?:N Signed (signature on file) MarnieGOLDY Worley (ASCP) 07/02/14 1510 This Pap test was evaluated with the assistance of the [employer] Test Imaging System. Due to cytologic findings at the [facility] former arbor end microscope, comprehensive manual rescreening by a Soccer Coach may be required. The Pap Smear is a screening test designed to aid in the detection of premalignant and malignant conditions of the uterine cervix. It is not a diagnostic procedure and should not be used as the sole means of detecting cervical cancer. Both false- positive and false- negative reports do occur. Depending on your risk status, a Pap smear shoudl be obtained and evaluated every 1-3 years. END OF REPORT * ML=Testing performed at Main Lab DEPARTMENT OF PATHOLOGY, [address] [place] [address] Alexei Styles M.D. Director [facility] # [id number] 25 Because ethnic data is not always readily available, this report includes an eGFR for both -Americans and non- Americans. The National Kidney Disease Education Program (NKDEP) does not endorse the use of the MDRD equation for patients that are not between the ages of 18 and 70, are , have extremes of body size, muscle mass, or nutritional status, or are non- or non-. According to the National Kidney Foundation, irrespective of diagnosis, the stage of the disease is based on the level of kidney function: Stage Description GFR(mL/min/1.73 m(2)) 1 Kidney damage with normal or decreased GFR 90 2 Kidney damage with mild decrease in GFR 60-89 3 Moderate decrease in GFR 30-59 4 Severe decrease in GFR 15-29 5 Kidney failure <15 (or dialysis) 26 PT HAD SMALL BITE OF TOFU OTHERWISE IS FASTING 27 Because ethnic data is not always readily available, this report includes an eGFR for both -Americans and non- Americans. The National Kidney Disease Education Program (NKDEP) does not endorse the use of the MDRD equation for patients that are not between the ages of 18 and 70, are , have extremes of body size, muscle mass, or nutritional status, or are non- or non-. According to the National Kidney Foundation, irrespective of diagnosis, the stage of the disease is based on the level of kidney function: Stage Description GFR(mL/min/1.73 m(2)) 1 Kidney damage with normal or decreased GFR 90 2 Kidney damage with mild decrease in GFR 60-89 3 Moderate decrease in GFR 30-59 4 Severe decrease in GFR 15-29 5 Kidney failure <15 (or dialysis) 28 PT HAD SMALL BITE OF TOFU OTHERWISE IS FASTING 29 Desirable <150 Borderline high 150-199 High 200-499 Very High >500 30 Desirable <200 Borderline high 200-239 High >239 31 Low <40 Desirable: 40-60 High: >60 32 Desirable <100 Near Optimal 100-129 Borderline high 130-159 High 160-189 Very High >189 33 Because ethnic data is not always readily available, this report includes an eGFR for both -Americans and non- Americans. The National Kidney Disease Education Program (NKDEP) does not endorse the use of the MDRD equation for patients that are not between the ages of 18 and 70, are , have extremes of body size, muscle mass, or nutritional status, or are non- or non-. According to the National Kidney Foundation, irrespective of diagnosis, the stage of the disease is based on the level of kidney function: Stage Description GFR(mL/min/1.73 m(2)) 1 Kidney damage with normal or decreased GFR 90 2 Kidney damage with mild decrease in GFR 60-89 3 Moderate decrease in GFR 30-59 4 Severe decrease in GFR 15-29 5 Kidney failure <15 (or dialysis) 34 CKMB interpretation should be made in conjunction with clinical symptoms, patient history and EKG changes. 35 Because ethnic data is not always readily available, this report includes an eGFR for both -Americans and non- Americans. The National Kidney Disease Education Program (NKDEP) does not endorse the use of the MDRD equation for patients that are not between the ages of 18 and 70, are , have extremes of body size, muscle mass, or nutritional status, or are non- or non-. According to the National Kidney Foundation, irrespective of diagnosis, the stage of the disease is based on the level of kidney function: Stage Description GFR(mL/min/1.73 m(2)) 1 Kidney damage with normal or decreased GFR 90 2 Kidney damage with mild decrease in GFR 60-89 3 Moderate decrease in GFR 30-59 4 Severe decrease in GFR 15-29 5 Kidney failure <15 (or dialysis) 36 Reference Range and Interpretation: TnI (ng/ml) Interpretation Less Than 0.06 ng/mL Not supportive of diagnosis of SD 0.06 - 0.50 ng/ml Indeterminate: suggest serial studies if clinically indicated. Greater than 0.5 ng/mL Consistent with diagnosis of SD 37 HDL Interpretation: Undesirable: High Risk: Less than 40 MG/DL Desirable: Low Risk: Greater than 60 MG/DL 38 LDL Interpretation: Low Risk Optimal Level: LDL Less than 100 MG/DL Near or Above Optimal: LDL 100-129 MG/DL Borderline High Risk: LDL 130-159 MG/DL High Risk: LDL 160-189 MG/DL Very High Risk: LDL Greater than 189 MG/DL 39 Because ethnic data is not always readily available, this report includes an eGFR for both -Americans and non- Americans. The National Kidney Disease Education Program (NKDEP) does not endorse the use of the MDRD equation for patients that are not between the ages of 18 and 70, are , have extremes of body size, muscle mass, or nutritional status, or are non- or non-. According to the National Kidney Foundation, irrespective of diagnosis, the stage of the disease is based on the level of kidney function: Stage Description GFR(mL/min/1.73 m(2)) 1 Kidney damage with normal or decreased GFR 90 2 Kidney damage with mild decrease in GFR 60-89 3 Moderate decrease in GFR 30-59 4 Severe decrease in GFR 15-29 5 Kidney failure <15 (or dialysis) 40 CHOLESTEROL INTERPRETATION: Desirable: Less than 200 MG/DL Borderline-High Risk: 200-239 MG/DL High-Risk: 240 MG/DL and over 41 HDL INTERPRETATION: Undesirable: High Risk: Less than 40 MG/DL Desirable: Low Risk: Greater than 60 MG/DL 42 LDL INTERPRETATION: Low Risk Optimal Level: LDL Less than 100 MG/DL Near or Above Optimal: LDL 100-129 MG/DL Borderline High Risk: LDL 130-159 MG/DL High Risk: LDL 160-189 MG/DL Very High Risk: LDL Greater than 189 MG/DL 43 Anion gap measurement may be of limited value in the presence of any alkalosis, especially in a combined acid base disorder. . 44 A metabolite of Naproxen, O-desmethylnaproxen, has been shown to interfere with the [place] method for measuring total bilirubin. Samples from patients who have taken Naproxen have shown spurious elevation in total bilirubin levels. 45 Because ethnic data is not always readily available, this report includes an eGFR for both -Americans and non- Americans. The National Kidney Disease Education Program (NKDEP) does not endorse the use of the MDRD equation for patients that are not between the ages of 18 and 70, are , have extremes of body size, muscle mass, or nutritional status, or are non- or non-. According to the National Kidney Foundation, irrespective of diagnosis, the stage of the disease is based on the level of kidney function: Stage Description GFR(mL/min/1.73 m(2)) 1 Kidney damage with normal or decreased GFR 90 2 Kidney damage with mild decrease in GFR 60-89 3 Moderate decrease in GFR 30-59 4 Severe decrease in GFR 15-29 5 Kidney failure <15 (or dialysis) 46 ---- RUN DATE: 12/27/10 [facility] NMI LIVE PAGE 1 RUN TIME: 1559 Specimen Inquiry RUN USER: INTERFACE -- Name: BETHRAFAELA Status: REG REF Re12/26/10 Age/Sex: 50/F Unit#: [id number] Location: [facility] : 60 -- Specimen: [id number] SOUT Spec Date: 12/26/[address]: Marta Ibarra MD Spec Type: CYTOLOGY Received: 12/27/10-1115 Copies to: SOURCE ECTOCERVICAL/ENDOCERVICAL Thin Prep with Reflex HPV Test PATIENT INFORMATION ACTUAL COLLECTION DATE: 12/26/10 ? No POST MENOPAUSAL? No HYSTERECTOMY? No PREVIOUS ABNORMAL PAP SMEARS No LAST MENSTRUAL PERIOD: 12/26/10 ADEQUACY OF SPECIMEN Satisfactory for evaluation * Transformation zone component identified * DIAGNOSIS NEGATIVE FOR INTRAEPITHELIAL LESION OR MALIGNANCY * This Pap test was evaluated with the assistance of the ThinPrep Pap Test Imaging System. The Pap Smear is a screening test designed to aid in the detection of premalign ant and malignant conditions of the uterine cervix. It is not a diagnostic procedure a nd should not be used as the sole means of detecting cervical cancer. Both false- positiv e and false-negative reports do occur. Depending on your risk status, a Pap smear judd uld be obtained and evaluated every one to three years. Initial evaluation performed by Lakshmi CARDENAS([facility]) 12/27/10 Final Interpretation electronically signed by: Lakshmi CARDENAS([facility]) 12/27/10 1559 -- -- DEPARTMENT OF PATHOLOGY, [address] [place] [address] [facility] Permit #[id number] Alexei Styles M.D. Director Allie Santos M.D. Vamp Maker Dir manisha -- 47 Anion gap measurement may be of limited value in the presence of any alkalosis, especially in a combined acid base disorder. . 48 Because ethnic data is not always readily available, this report includes an eGFR for both -Americans and non- Americans. The National Kidney Disease Education Program (NKDEP) does not endorse the use of the MDRD equation for patients that are not between the ages of 18 and 70, are , have extremes of body size, muscle mass, or nutritional status, or are non- or non-. According to the National Kidney Foundation, irrespective of diagnosis, the stage of the disease is based on the level of kidney function: Stage Description GFR(mL/min/1.73 m(2)) 1 Kidney damage with normal or decreased GFR 90 2 Kidney damage with mild decrease in GFR 60-89 3 Moderate decrease in GFR 30-59 4 Severe decrease in GFR 15-29 5 Kidney failure <15 (or dialysis) 49 Anion gap measurement may be of limited value in the presence of any alkalosis, especially in a combined acid base disorder. . 50 Note change in reference range as of 04/29/08. The change was based on recommendations from the [place] [employer]. 51 Because ethnic data is not always readily available, this report includes an eGFR for both -Americans and non- Americans. The National Kidney Disease Education Program (NKDEP) does not endorse the use of the MDRD equation for patients that are not between the ages of 18 and 70, are , have extremes of body size, muscle mass, or nutritional status, or are non- or non-. According to the National Kidney Foundation, irrespective of diagnosis, the stage of the disease is based on the level of kidney function: Stage Description GFR(mL/min/1.73 m(2)) 1 Kidney damage with normal or decreased GFR 90 2 Kidney damage with mild decrease in GFR 60-89 3 Moderate decrease in GFR 30-59 4 Severe decrease in GFR 15-29 5 Kidney failure <15 (or dialysis) Procedures Date CPT Code Description Status 06/26/2017 99713 EKG Tracing & Interpretation Completed 10/04/2015 80829 EKG Tracing & Interpretation Completed 07/19/2015 Mammogram Completed 07/08/2014 Mammogram Completed 12/18/2013 17867 EKG Tracing & Interpretation Completed 10/28/2012 Mammogram Completed 10/02/2012 82120 EKG Tracing & Interpretation Completed 06/15/2012 76193 Stress ECHO Interpretation/Report Hospital Completed 06/15/2012 61330 Treadmill Interp/Report Only Completed 06/15/2012 69786 Stress Test Supervsn W/Out I/R Completed 06/15/2012 97283 EKG, Interpretation Only Completed 11/07/2011 91183 EKG Tracing & Interpretation Completed 01/08/2011 Mammogram Completed 01/05/2011 98243 EKG Tracing & Interpretation Completed 09/22/2010 54157 ECHO Stress Test Incl Perf Contiuous ekg Monitoring Completed W/Phys Superv 07/27/2010 65919 ECHO Transthoracic, Real-Time 2D With Doppler And Color Completed Flow 04/26/2010 96158 EKG Tracing & Interpretation Completed 01/06/2010 Mammogram Completed 07/07/2009 Mammogram Completed 01/05/2009 Mammogram Completed 07/07/2008 Mammogram Completed 04/29/2008 82854 EKG Tracing & Interpretation Completed 01/07/2008 Mammogram Completed 12/03/2003 05136 ECHO/Stress Completed 12/03/2003 73812 Stress Test Completed 11/08/2003 02941 Color Doppler Completed 11/08/2003 19266 Pulse Doppler & Continuous Wave Completed 11/08/2003 90154 Echocardiogram Completed 11/02/2003 89958 EKG Tracing & Interpretation Completed Encounters Type Date Location Provider CPT E/M Dx Office Visit 06/26/2017 [facility] Luther Cooper, 22900 I47.1 3:40p M.DVenus Office Visit 04/05/2017 [facility] Marta Ibarra 00228 M72.2 3:40p - [place] Office Visit 11/08/2016 [facility] Marta Ibarra 61287 R21 10:00a - [place] Office Visit 09/28/2016 [facility] Marta Fred, 36363 J06.9 4:00p - [place] MTodd Office Visit 07/26/2016 [facility] Marta Fred, 35332 Z00.00 9:20a - [place] Abhinav I47.1 Office Visit 03/16/2016 11:00a [facility] Marta Fred, 31754 J06.9 - [place] Abhinav Office Visit 10/04/2015 9:00a [facility] Luther Cooper, 69159 I47.1 M.D. Office Visit 07/05/2015 10:20a [facility] Marta Cotton, 19526 Z00.01 - [place] I47.1 Z12.11 Z12.31 L60.3 D70.9 Office Visit 11/09/2014 11:40a [facility] Nancy Lyon, N.P. 79591 379.24 - [place] Office Visit 07/16/2014 1:00p [facility] Marta Fred, 35113 214.9 - [place] Abhinav Office Visit 07/02/2014 9:00a [facility] Marta Fred, 43723 V70.0 - [place] V72.31 V76.10 V76.2 V76.51 727.05 V73.89 Office Visit 06/11/2014 2:20p [facility] Marta Fred, 28144 727.05 - [place] M.D. Office Visit 12/18/2013 9:40a [facility] Luther Cooper, 45919 427.0 M.DVenus 786.50 Office Visit 10/09/2012 11:00a [facility] Marta Fred, 15722 V70.0 - [place] Abhinav V72.31 V76.10 Office Visit 10/02/2012 3:40p [facility] Luther Cooper, 01627 427.0 M.D. Office Visit 06/15/2012 2:28p [facility] Luther Cooper, 67619 786.50 M.DVenus 427.0 Office Visit 11/16/2011 10:40a [facility] Marta Cotton, 97190 782.1 - [place] M.D. Office Visit 11/07/2011 10:20a [facility] Luther Cooper, 68806 427.0 [facility] M.D. Office Visit 03/30/2011 11:20a DO Not Use Marta Cotton, 20009 461.9 [facility] M.D. Office Visit 01/18/2011 8:40a DO Not Use Marta Cotton, 06616 477.9 [facility] M.D. Office Visit 01/05/2011 2:40p [facility] Luther Cooper, 47973 427.0 M.D. Office Visit 12/26/2010 1:45p DO Not Use Marta Fred, 88682 V70.0 [facility] M.D. V72.31 427.0 V06.1 Office Visit 09/22/2010 10:30a [facility] Luther Cooper M.D. 90275 427.0 794.31 Office Visit 07/13/2010 10:00a DO Not Use [facility] Nancy Lyon, 45072 218.9 N.P. 626.2 Office Visit 07/03/2010 9:15a DO Not Use Nancy Lyon, 82939 626.2 [facility] N.P. Office Visit 04/26/2010 3:40p [facility] Luther Smith 26932 786.59 Abhinav Cooper 396.2 427.0 Office Visit 08/04/2008 3:45p DO Not Use Alejandra Li, 50949 478.19 [facility] M.D. Office Visit 04/29/2008 3:30p DO Not Use Alejandra Li, 44228 V72.31 [facility] M.D. 785.1 Office Visit 06/27/2007 11:45a DO Not Use [facility] Claudette Vitale 82099 708.9 M.DVenus, FACP Office Visit 06/12/2006 2:45p DO Not Use [facility] Guillermo Alejandra, 26620 785.6 M.D. 780.4 Office Visit 03/25/2006 8:30a DO Not Use Alejandra Li, 87058 785.0 [facility] Visit 11/02/2003 1:40p [facility] Luther Cooper, 70305 427.0 M.D. 396.2 786.50 Plan of Care Future Appointment(s):08/07/2018 8:00 am - Marta Ibarra M.D. at [facility]08/06/2017 - Marta Ibarra M.D.Z00.00 Encntr for general adult medical exam w/o abnormal findingsComments:VACCINES:Flu shot every year in the fall. Tetanus: last one done in 2010. Booster every 10 years, earlier if major injury Shingles vaccine: recommended at age 60, there is a new shingles vaccine which may be recommended at age 50, final recommendations are pendingSCREENING:Colon cancer screening: colonoscopy, Cologuard or Hemosure (FIT ) Mammogram: last done 07/19/15, recheck this yearPap smear: last one done in 2013; your pap smear was normal and HPV was negative. Current guidelines for low risk women recommend next pap smear in 2019 (every 5 years) Diabetes screening: annual fasting blood sugarFollow up:See me in 1 yr. Pls give daughter appt with ARUN (I will be supervising MD), new olwlwwrN50.31 Encntr screen mammogram for malignant neoplasm of fnrmfsU71.11 Encounter for screening for malignant neoplasm of colonNew Labs:Hemosure Non-Medicare
[2017-09-04 09:44] VITALS: BP 87/51
--- NOTE | 2017-09-04 10:21 | UC ---
Throat Pain/Nasal Sloan HPI - HPI Summary HPI Summary: Patient presents with an unremarkable past medical history. She presents today with complaints of two day onset throat pain, fever, and right ear pain. She is able to speak, eat and drink and handle her own secretions. She denies recent travel, ill contacts, cheat or abdominal pain, nausea, vomiting, diarrhea , rash or joint pain. - History of Current Complaint Chief Complaint: UCRespiratory Stated Complaint: SORE THROAT Time Seen by Provider: 09/04/17 09:54 Hx Obtained From: Patient ?: No Onset/Duration: Sudden Onset, Lasting Days Severity: Moderate Cough: Nonproductive Associated Signs & Symptoms: Positive: Fever - Epiglottits Risk Factors Epiglottis Risk Factors: Negative - Allergies/Home Medications Allergies/Adverse Reactions: Allergies Allergy/AdvReac Type Severity Reaction Status Date / Time No Known Allergies Allergy Verified 06/15/12 03:31 Home Medications: Home Medications Aspirin [Eql Aspirin] 325 mg PO 09/04/17 [History] PMH/Surg Hx/FS Hx/Imm Hx Previously Healthy: Yes - Surgical History Surgical History: None - Family History Known Family History: Positive: Cardiac Disease - CVA-mom, Hypertension - Mom, dad, 6 siblings - Social History Occupation: Unemployed Lives: Alone Alcohol Use: None Substance Use Type: None Smoking Status (MU): Never Smoked Tobacco Have You Smoked in the Last Year: No Review of Systems Constitutional: Fever, Fatigue Skin: Negative Eyes: Negative ENT: Sore Throat, Ear Ache Respiratory: Negative Cardiovascular: Negative Gastrointestinal: Negative Genitourinary: Negative Motor: Negative Neurovascular: Negative Musculoskeletal: Negative Neurological: Negative Psychological: Negative Is Patient Immunocompromised?: No All Other Systems Reviewed And Are Negative: Yes Physical Exam Triage Information Reviewed: Yes Appearance: Ill-Appearing Vital Signs: Initial Vital Signs Temp 100.5 F 09/04/17 09:38 Pulse 90 09/04/17 09:38 Resp 16 09/04/17 09:38 BP 87/51 09/04/17 09:38 Pulse Ox 97 09/04/17 09:38 Vital Signs Reviewed: Yes Eye Exam: Normal ENT Exam: Normal ENT: Positive: Pharyngeal erythema - mild erythma noted at palatine arches only , without exudate, or tonsilar edema., Uvula midline Dental Exam: Normal Neck exam: Normal Neck: Positive: 1 Respiratory Exam: Normal Respiratory: Positive: Lungs clear, Normal breath sounds, No respiratory distress, No accessory muscle use Cardiovascular Exam: Normal Cardiovascular: Positive: RRR, No Murmur Abdominal Exam: Normal Musculoskeletal Exam: Normal Neurological Exam: Normal Psychological Exam: Normal Skin Exam: Normal Throat Pain/Nasal Course/Dx - Course Course Of Treatment: Patient presents with an unremarkable past medical history , with complaints of two day onset fever, sore throat, and right ear pain. VS were recored as BP 87/51, T 100.5, P-90, R- 16 O2sat on RA 97 %. Rapid strep was negative. Clinical findings at this time are consistent with viral syndrome. I recommend that she take tylenol and or advil for fever and pain, increase fluids, and rest. If for any reason her symptoms worsen or do not improve as anticipated she was told to be seen for re-evaluation immedicatle. She did verbalized understanding of and was in agreement with the discharge plan. - Differential Dx/Diagnosis Differential Diagnosis/HQI/PQRI: Pharyngitis Provider Diagnoses: pharyngitis Discharge - Discharge Plan Condition: Stable Disposition: HOME Patient Education Materials: Pharyngitis (ED) Referrals: Marta Ibarra MD [Primary Care Provider] - Additional Instructions: The strep throat test was negative, so I recommend tylenol. or advil, rest , increase fluids and monitor for worsening symptoms and if any develop follow up with your PCP.
== END 2017-09-04 10:17 | disposition home or self-care (01) ==
LOC: UCEAST 09:24
DX: J02.9 Acute pharyngitis, unspecified (principal)
CPT/HCPCS: 87651; 99211; G0463

== ENCOUNTER 2019-09-02 10:49 | Emergency (ER) | payer OTHER ==
[2019-09-02 10:58] VITALS: BP 98/55
--- NOTE | 2019-09-02 11:08 | UC ---
Epistaxis Nasal HPI - HPI Summary HPI Summary: Left nostril pain and has noticed a little irritation inside. - History of Current Complaint Chief Complaint: UCRespiratory Stated Complaint: sore THROAT, AND SINUS CONGESTION Time Seen by Provider: 09/02/19 10:53 Hx Obtained From: Patient Pain Intensity: 4 Pain Scale Used: 0-10 Numeric Aggravating Factor(s): Nasal Picking Alleviating Factor(s): Nothing - Allergies/Home Medications Allergies/Adverse Reactions: Allergies Allergy/AdvReac Type Severity Reaction Status Date / Time No Known Allergies Allergy Verified 09/02/19 10:58 PMH/Surg Hx/FS Hx/Imm Hx - Additional Past Medical History Additional PMH: no chronic illness Previously Healthy: Yes - Surgical History Surgical History: None - Family History Known Family History: Positive: Cardiac Disease - CVA-mom, Hypertension - Mom, dad, 6 siblings - Social History Alcohol Use: None Substance Use Type: None Smoking Status (MU): Never Smoked Tobacco Have You Smoked in the Last Year: No Review of Systems All Other Systems Reviewed And Are Negative: Yes Constitutional: Negative: Fever Skin: Positive: Other - redness on L side of nose.. Negative: Rash ENT: Negative: Dental Pain, Nasal Discharge, Sinus Pain/Tenderness Physical Exam Triage Information Reviewed: Yes Appearance: Well-Appearing Vital Signs: Initial Vital Signs Temp 98.6 F 09/02/19 10:55 Pulse 67 09/02/19 10:55 Resp 18 09/02/19 10:55 BP 98/55 09/02/19 10:55 Pulse Ox 100 09/02/19 10:55 Vital Signs Reviewed: Yes ENT: Positive: TMs normal, Other - L inner nares has irritation and outer nares has some redness Neck: Positive: No Lymphadenopathy Epistaxis Nasal Course/Dx - Course Course Of Treatment: Superficial infection inside nares. Gave her bacitracin to use. advised not to pick area. appears to have repeated trauma to the inside. vitals good. - Differential Dx/Diagnosis Differential Diagnosis/HQI/PQRI: Other Provider Diagnosis: Superficial skin infection Discharge ED - Sign-Out/Discharge Documenting (check all that apply): Patient Departure All imaging exams completed and their final reports reviewed: No Studies - Discharge Plan Condition: Good Disposition: HOME Patient Education Materials: Abrasion (ED) Referrals: Marta Ibarra MD [Primary Care Provider] - Additional Instructions: apply antibiotic with Qtip. please try not to pick for at least one week. - Billing Disposition and Condition Condition: GOOD Disposition: Home - Attestation Statements Provider Attestation: Per institutional requirements, I have reviewed the chart, however, I was not consulted specifically or made aware of this patient by the midlevel provider. I did not personally evaluate, interact with , or disposition this patient.
== END 2019-09-02 11:12 | disposition home or self-care (01) ==
LOC: UCEAST 10:49
DX: L08.89 Other specified local infections of the skin and subcutaneous tissue (principal)
CPT/HCPCS: 99211; G0463

== ENCOUNTER 2019-09-25 17:27 | Emergency (ER) | payer OTHER ==
[2019-09-25 17:44] VITALS: BP 115/65
--- NOTE | 2019-09-25 18:23 | UC ---
Eye Complaint HPI - HPI Summary HPI Summary: 59-year-old female presents with complaints of onset of area of red, tender, swelling to her left lower eyelid that started yesterday. Denies eye pain, redness, drainage, foreign body sensation, visual disturbances, or photophobia. - History of Current Complaint Chief Complaint: UCSkin Stated Complaint: EYELID ISSUE Time Seen by Provider: 09/25/19 18:20 Hx Obtained From: Patient Pain Intensity: 1 - Allergies/Home Medications Allergies/Adverse Reactions: Allergies Allergy/AdvReac Type Severity Reaction Status Date / Time No Known Allergies Allergy Verified 09/25/19 17:36 PMH/Surg Hx/FS Hx/Imm Hx Previously Healthy: Yes - Denies significant PMH - Surgical History Surgical History: None - Family History Known Family History: Positive: Cardiac Disease - CVA-mom, Hypertension - Mom, dad, 6 siblings - Social History Lives: With Family Alcohol Use: None Substance Use Type: None Smoking Status (MU): Never Smoked Tobacco Have You Smoked in the Last Year: No Review of Systems All Other Systems Reviewed And Are Negative: Yes Constitutional: Negative: Fever Skin: Negative: Negative Eyes: Positive: Other - See HPI. Negative: Blurred Vision, Diplopia, Drainage, Eye Redness, Photophobia ENT: Positive: Negative Respiratory: Positive: Negative Cardiovascular: Positive: Negative Gastrointestinal: Positive: Negative Genitourinary: Positive: Negative Musculoskeletal: Positive: Negative Neurological: Positive: Negative Is Patient Immunocompromised?: No Physical Exam - Summary Physical Exam Summary: GENERAL APPEARANCE: Well developed, well nourished, alert and cooperative, and appears to be in no acute distress. EYES: Small, tender area of erythema and edema to the medial left lower eyelid. Conjunctiva clear. No drainage. PERRL, EOM intact. Vision is grossly intact. CARDIAC: Normal S1 and S2. No S3, S4 or murmurs. Rhythm is regular. There is no peripheral edema, cyanosis or pallor. Extremities are warm and well perfused. Capillary refill is less than 2 seconds. Peripheral pulses intact. LUNGS: Clear to auscultation without rales, rhonchi, wheezing or diminished breath sounds. ABDOMEN: Positive bowel sounds. Soft, nondistended, nontender. No guarding or rebound. No masses or hepatosplenomegally. MUSKULOSKELETAL: ROM intact to all extremities. No joint erythema or tenderness. Normal muscular development. Normal gait. SKIN: Skin normal color, texture and turgor with no lesions or eruptions. Triage Information Reviewed: Yes Vital Signs: Initial Vital Signs Temp 99.2 F 09/25/19 17:37 Pulse 65 09/25/19 17:37 Resp 16 09/25/19 17:37 BP 115/65 09/25/19 17:37 Pulse Ox 100 09/25/19 17:37 Vital Signs Reviewed: Yes Eye Complaint Course/Dx - Course Course Of Treatment: 59-year-old female presents with complaints of onset of area of red, tender, swelling to her left lower eyelid that started yesterday. Denies eye pain, redness, drainage, foreign body sensation, visual disturbances, or photophobia. Afebrile. VSS. Patient had a small, tender area of erythema and edema to the medial left lower eyelid consistent with a hordeolum. Conjunctiva clear. No drainage. PERRL, EOM intact. Vision is grossly intact. Remainder of exam was unremarkable. Recommending conservative treatment for an internal hordeolum including hot, moist compresses and OTC analgesics. She is to follow up with ophthalmology in 5-7 days if no improvement in symptoms. Anticipatory guidance and warning symptoms reviewed with patient. Verbalizes understanding and agrees with POC. - Differential Dx/Diagnosis Differential Diagnosis/HQI/PQRI: Conjunctivitis, Foreign Body, Periorbital Cellulitis, Orbital Cellulitis, Other - Hordeolum Provider Diagnosis: Internal hordeolum of left eye Discharge ED - Sign-Out/Discharge Documenting (check all that apply): Patient Departure All imaging exams completed and their final reports reviewed: No Studies - Discharge Plan Condition: Stable Disposition: HOME Patient Education Materials: Stye (ED) Referrals: Marta Ibarra MD [Primary Care Provider] - Efrem Thacker MD [Medical Doctor] - 5 Days (If no improvement in symptoms. Call for appointment.) Additional Instructions: Your exam is consistent with an internal hordeolum (stye) of the left lower eyelid. These will typically resolve on their own over a few days. Use a warm moist compress to the eye for 15 minutes at least 3-4 times a day. You may take [id number] acetaminophen (Tylenol) or ibuprofen (see Advil, Motrin) according to directions as needed for any discomfort. Follow-up with ophthalmology in 5-7 days if symptoms are not improving. Call for an appointment. Seek immediate medical attention in the emergency room if you develops severe eye pain, visual disturbances, loss of vision, or any worsening of symptoms. - Billing Disposition and Condition Condition: STABLE Disposition: Home
== END 2019-09-25 18:35 | disposition home or self-care (01) ==
LOC: UCEAST 17:27
DX: H00.025 Hordeolum internum left lower eyelid (principal)
CPT/HCPCS: 99211; G0463